=== PATIENT | male | born 1970 | race African-American/Black ===

== ENCOUNTER 2018-08-05 12:48 | Emergency (ER) | payer BC ==
[~2018-08-05] VITALS: Ht 180.3 cm; Wt 98.0 kg
[2018-08-05] MEDS ORDERED: MAGNESIUM/ALUMINUM HYDROXIDE/SIMETHICONE 30ML UDC PO ONE (14:30)
[2018-08-05] MEDS ORDERED: VISCOUS LIDOCAINE 2% 15 ML UDC PO ONE (14:30)
[2018-08-05] MEDS: ASPIRIN 81MG TABLET PO ONE ×2 (14:50→14:52)
[2018-08-05 15:30] VITALS: BP 152/98
== END 2018-08-05 16:03 | disposition home or self-care (01) ==
LOC: ER 12:48
DX: R07.89 Other chest pain (principal); I10 Essential (primary) hypertension
CPT/HCPCS: 36415; 71045; 83880; 84484; 93005; 99284